=== PATIENT | male | born 1995 | race Caucasian/White ===

== ENCOUNTER 2017-08-04 16:40 | Emergency (ER) | payer OTHER ==
[2017-08-04] MEDS ORDERED: Proparacaine 0.5% Ophth Soln 15 ML Bottle EYERT STA (16:50)
--- NOTE | 2017-08-04 17:14 | EDM.PDOC ---
ED HPI GENERAL MEDICAL PROBLEM - General Chief Complaint: Eye Problems Stated Complaint: CHEMICAL IN RIGHT EYE FROM WORK Time Seen by Provider: 08/04/17 16:50 Source of Information: Reports: Patient, RN Notes Reviewed, Other (sheriff's officer) - History of Present Illness INITIAL COMMENTS - FREE TEXT/NARRATIVE: 22-year-old male has been brought here to the ED by his safety scientist for evaluation of chemical exposure right eye and also to his face. He was at a well site injecting a "corrosion inhibitor" which is a mixture of about 10 different chemicals into a well. Something malfunctioned with the induction device and he did get "splashed to the right eye and face with the above noted chemical mixture. He was wearing safety glasses but not goggles. He states there was about 5 seconds of discomfort to the right eye and then the pain resolved. He was able to quickly irrigate the eye and face with water. He states his vision initially was "blurry but now much better. He now does have some continued irritation of the right eye and also does have light sensitivity. He has had no coughing, vomiting or respiratory difficulty. His face does not burn. He does not wear contacts or glasses. This exposure injury occurred about 3-1/2 hours ago. sheriff's officer has brought the SDS in for review. Right Eye Pain Score (Numeric/FACES): 5 - Related Data Allergies Allergy/AdvReac Type Severity Reaction Status Date / Time No Known Allergies Allergy Verified 08/04/17 16:55 Home Meds: Home Meds . [No Known Home Meds] 08/04/17 [History] Past Medical History - Past Health History Medical/Surgical History: Denies Medical/Surgical History Social & Family History - Tobacco Use Smoking Status *Q: Current Every Day Smoker Years of Tobacco use: 9 Packs/Tins Daily: 0.7 - Caffeine Use Caffeine Use: Reports: Soda, Tea - Recreational Drug Use Recreational Drug Use: No ED ROS GENERAL - Review of Systems Review Of Systems: See Below Constitutional: Reports: No Symptoms HEENT: Reports: Eye Pain (Mild right eye discomfort), Vision Change (vision was moderately blurry initially, now much better, still at least slightly blurry.) Respiratory: Denies: Shortness of Breath, Wheezing, Cough GI/Abdominal: Denies: Nausea, Vomiting Musculoskeletal: Reports: No Symptoms Skin: Reports: Other (No burning discomfort of the face or upper body). Denies : Rash, Erythema ED EXAM GENERAL W FULL EYE - Physical Exam Exam: See Below General Appearance: Alert, No Apparent Distress Eye Exam: Right Eye: Conjunctival Injection (Mild), Bilateral Eye: PERRL Visual Acuity (R) 20/: 50 Visual Acuity (L) 20/: 20 Eyelids: Bilateral: Normal Appearance Conjunctiva & Sclera: Right: Injected Pupillary Size: Bilateral: 4 mm Pupillary Reaction: Right: Sluggish, Left: Brisk Nose: Normal Inspection Throat/Mouth: Normal Inspection, Normal Oropharynx Head: Other (No facial erythema). No: Facial Swelling Neck: Supple Respiratory/Chest: No Respiratory Distress Extremities: Normal Inspection Neurological: Alert, Oriented, No Motor/Sensory Deficits Skin Exam: Warm, Dry, Normal Color, No Rash. No: Erythema Course - Vital Signs Last Recorded V/S: Last Vital Signs Temp 97.7 F 08/04/17 16:50 Pulse 58 L 08/04/17 16:50 Resp 20 08/04/17 16:50 BP 128/79 08/04/17 16:50 Pulse Ox 100 08/04/17 16:50 - Orders/Labs/Meds Meds: Medications Discontinued Medications Generic Name Dose Route Start Last Admin Trade Name Freq PRN Reason Stop Dose Admin Acetaminophen 975 mg 08/04/17 18:34 08/04/17 18:42 Tylenol PO 08/04/17 18:35 975 mg NOW ONE Administration Fluorescein Sodium/Benoxinate HCl Confirm 08/04/17 17:48 08/04/17 18:03 Fluress Ophth Soln Administered 08/04/17 17:49 Not Given Dose 5 ml .ROUTE .STK-MED ONE Fluorescein Sodium/Benoxinate HCl 1 ml 08/04/17 18:03 08/04/17 18:05 Fluress Ophth Soln EYERT 08/04/17 18:04 2 drop ONETIME STA Administration Sodium Chloride 1,000 mls @ 999 mls/hr 08/04/17 18:06 08/04/17 18:14 Sodium Chloride 0.9% IRR 999 mls/hr ASDIRECTED PRN Administration asdirected Proparacaine HCl 1 ml 08/04/17 16:50 08/04/17 17:00 Proparacaine 0.5% Ophth Soln EYERT 08/04/17 16:51 2 drop NOW STA Administration - Re-Assessments/Exams Free Text/Narrative Re-Assessment/Exam: 08/04/17 17:17 Safety data sheet has been reviewed. Ethanol is the main ingredient at about 35- 40%, ethylene glycol and water for the next 2 main ingredients. Phosphoric acid is present as well as acetic acid, sodium hydroxide, formaldehyde and various other hydrocarbons in small percentage quantity. 08/04/17 17:48. Eyes been irrigated with 1 L normal saline. pH is neutral now at around 7, slit-lamp exam shows diffuse edema of the cornea good across the mid cornea and to a lesser degree upper and lower cornea. No sloughing of tissue visualized. No ulceration visualized. Visual acuity on arrival was 20/20 left eye, 20/50 on the right. Irrigating with one further liter normal saline at this time. 08/04/17 18:25. I have discussed this with Dr Blair, Opthamologist communications editor for [facility]. He will see patient 10:00 tomorrow AM at his eye clinic. He recoemends he be treated with maxitrol eye ointment q 2 hr while awake tonight and than again in the AM. The patient has been having mild discomfort that is totally relieved when given topical propericaine gtts. Have also given tylenol. Discharge instr. as documented. Departure - Departure Time of Disposition: 18:34 Disposition: Home, Self-Care 01 Condition: Fair Clinical Impression: Chemical injury of eye Qualifiers: Encounter type: initial encounter Laterality: right Qualified Code(s): T26.91XA - Corrosion of right eye and adnexa, part unspecified, initial encounter - Discharge Information Instructions: Chemical Conjunctivitis, Adult Referrals: PCP,Unknown [Ordering Only Provider] - Forms: ED Department Discharge Additional Instructions: Maxitrol Ointment q 2 hr R eye this PM while awake and than again every 2 hr tomorrow morning until you see your eye Dr. you may alternate tylenol and ibuprofen as needed for discomfort. See Dr Blair, Opthamologist 11 AM central , 10 AM [place] time at his eye clinic tomorrow morning. It is extremely important that you are there by 11 AM to be seen. Address: [facility], [address] [place] [address]. Call ED for any questions or problems.
[2017-08-04] MEDS ORDERED: Benoxinate/Fluorescein 0.4-0.25% Ophth Soln 5 ML Bottle ONE (17:48)
[2017-08-04] MEDS ORDERED: Benoxinate/Fluorescein 0.4-0.25% Ophth Soln 5 ML Bottle EYERT STA (18:03)
[2017-08-04] MEDS ORDERED: Sodium Chloride 0.9% 1,000 ML IRR PRN (18:06)
[2017-08-04] MEDS ORDERED: Acetaminophen 325 MG Tab PO ONE (18:34)
== END 2017-08-04 18:45 | disposition home or self-care (01) ==
LOC: JD.ED 16:40
DX: T26.61XA Corrosion of cornea and conjunctival sac, right eye, initial encounter (principal); F17.210 Nicotine dependence, cigarettes, uncomplicated
CPT/HCPCS: 99283; A9270